=== PATIENT | female | born 1970 | race Caucasian/White ===

== ENCOUNTER 2020-11-07 20:37 | Emergency (ER) | payer OTHER, SELFPAY ==
--- NOTE | ~2020-11-07 | XR_ITS ---
EXAMINATION: XR CHEST CLINICAL INFORMATION: Upper respiratory symptoms COMPARISON: None TECHNIQUE: 2 views of the chest were obtained. FINDINGS: The lungs are well expanded. There is no focal consolidation, edema, or effusion. No pneumothorax. The cardiomediastinal silhouette is within normal limits. No acute osseous abnormality. XR/XR chest 2V IMPRESSION: Clear lungs.
[2020-11-07 21:23] VITALS: BP 156/72; PULSE 79; RESP 18; TEMP 37.2; O2SAT 98; BMI 40.7
[2020-11-07 21:50] LABS: COVID-19 Test Positive (Negative)
--- NOTE | 2020-11-07 22:22 | ED_ITS ---
HPI - URI/Sore Throat General Chief Complaint: Upper Respiratory Symptoms Stated Complaint: Covid symptoms Time Seen by Provider: 11/07/20 22:18 Source: patient Mode of arrival: ambulatory Limitations: no limitations History of Present Illness HPI Narrative: Patient not COVID vaccinated complaining of body aches sore throat dry cough burning in the chest for last 3 days patient has partner also sick with the same for last 1 week no fever no significant shortness of breath saturating 98% on room air Related Data Previous Rx's Medication Instructions Recorded codeine 10 mg-guaifenesin 100 mg/5 10 ml PO Q4-6H PRN #237 ml 11/07/20 mL oral liquid dexamethasone 6 mg tablet 6 mg PO DAILY #7 tab 11/07/20 (Decadron) Allergies Allergy/AdvReac Type Severity Reaction Status Date / Time No Known Allergies Allergy Verified 11/07/20 21:23 Review of Systems Review of Systems: Yes all other systems are reviewed and are negative PMFSH Past Medical History Medical History No pertinent past medical history Social History Social History Advance Directives: No Advance Directives Information Provided: No Patient : No Physical Exam Vital Signs: Vital Signs: Last Vital Signs Temp 99.0 F 11/07/20 21:23 Pulse 79 11/07/20 21:23 Resp 18 11/07/20 21:23 BP 156/72 H 11/07/20 21:23 Pulse Ox 98 11/07/20 21:23 Body Mass Index 40.7 Appearance: Alert. Oriented X3. No acute distress. ENT: Pharynx normal. Oral Mucosa moist Neck: Normal inspection. Neck supple. CVS: Normal heart rate and rhythm. Pulses normal. Respiratory: No respiratory distress. Equal air entry bilateral, no wheezing /rales/rhonchi Abdomen: Soft and nontender. Skin: Skin warm and dry. r. Extremities: No lower extremity edema. No calf tenderness Neuro: Oriented X 3. MDM - URI/Sore Throat MDM Narrative Medical decision making narrative: Patient a dry cough chest x-ray negative saturating 98% on room air COVID positive which are patient on Decadron Lab Data Attestation: I reviewed the patient's lab results. Labs: Lab Results 11/07/20 Range/Units 21:34 COVID-19 ([facility]) Positive A (Negative) COVID-19 Clin Com See Note Discharge Plan Discharge Clinical Impression: COVID-19 Patient Disposition: Home, Self-Care Instructions: COVID-19 (Coronavirus Disease 2019) (ED) Additional Instructions: Keep isolated for 2 weeks Decadron as advised Cough syrup as advised Report to the ER if increased shortness of breath Prescriptions: New dexamethasone [Decadron] 6 mg tablet 6 mg PO DAILY Qty: 7 RF: 0 codeine-guaifenesin 10-100 mg/5 mL liquid 10 ml PO Q4-6H PRN (Reason: cough) Qty: 237 RF: 0 Stand Alone Forms: Work/School Release Interventions: ED Discharge Assessment Last Done: 11/07/20 22:34 Discharge Date/Time: 11/07/20 22:35
== END 2020-11-07 22:35 | disposition home or self-care (01) ==
PROVIDERS: Emergency Provider Internal Medicine
DX: U07.1 COVID-19 (principal); R05 Cough; Z79.899 Other long term (current) drug therapy
CPT/HCPCS: 36415; 71046; 87635; 99283

== ENCOUNTER 2020-11-15 09:14 | Emergency (ER) | payer OTHER, SELFPAY ==
--- NOTE | ~2020-11-15 | XR_ITS ---
EXAMINATION: XR CHEST CLINICAL INFORMATION: Cough, Covid. COMPARISON: 11/07/2020 chest radiographs. TECHNIQUE: Frontal view of the chest was obtained. FINDINGS: Patchy opacities are seen most pronounced in the left mid and lower lung garcia. The heart and mediastinal structures are unremarkable. XR/XR chest 1V IMPRESSION: Patchy infiltrates predominantly in the left mid and lower lung garcia were not seen previously and suggest an infectious/inflammatory process. COVID can demonstrate this appearance.
[2020-11-15 09:36] LABS: COVID-19 Test Positive (Negative)
[2020-11-15 10:45] VITALS: BP 129/57; PULSE 72; RESP 18; TEMP 36.6; O2SAT 97; BMI 40.7
--- NOTE | 2020-11-15 11:06 | ED.URI ---
HPI - URI/Sore Throat General Chief Complaint: Upper Respiratory Symptoms Stated Complaint: fly like symptons + covid Time Seen by Provider: 11/15/20 10:44 Source: patient Mode of arrival: ambulatory Limitations: no limitations History of Present Illness HPI Narrative: 50 y/o unvaccinated female with recent diagnosis of COVID-19 on 11/07 (symptomatic for the last 10 days) who presents to the ER today with ongoing symptoms. She reports she wants to make sure she does not have pneumonia. She has a hard time taking a deep breath and has frequent coughing fits. She is not bringing up phlegm. She is no longer having fevers. She has very mild SOB with exertion and feels fatigued when she talks and moves around a lot. She has no chest pains. No N/V/D and she is tolerating PO. MD elicited complaint: fever and cough Pertinent past history: other (COVID-19) Onset (ago): day(s) (10) Consistency: constant Severity: moderate Able to tolerate fluids by mouth: Yes Exacerbating factors: other (night time, coughing fits) Relieving factors: OTC cold medicine Context: sick contacts Associated symptoms: myalgias, headache, cough and shortness of breath Treatments prior to arrival: cold medicine Related Data Previous Rx's Medication Instructions Recorded codeine 10 mg-guaifenesin 100 mg/5 10 ml PO Q4-6H PRN #237 ml 11/07/20 mL oral liquid dexamethasone 6 mg tablet 6 mg PO DAILY #7 tab 11/07/20 (Decadron) azithromycin 250 mg tablet See Rx Instructions .ROUTE 11/15/20 (Zithromax Z-Abdifatah) .COMPLEX #6 tab benzonatate 100 mg capsule 100 mg PO TID PRN #10 cap 11/15/20 (Tessalon Perles) prednisone 50 mg tablet 50 mg PO DAILY #5 tab 11/15/20 Allergies Allergy/AdvReac Type Severity Reaction Status Date / Time No Known Allergies Allergy Verified 11/07/20 21:23 Review of Systems Review of Systems: Constitutional: No Fever, No Chills ENT/Mouth: + sore throat, No Rhinorrhea, No Swallowing Difficulty Cardiovascular: No Chest Pain, + SOB, No Orthopnea, No Edema Respiratory: + Cough, No Sputum, No Wheezing, No dyspnea Gastrointestinal: No Nausea, No Vomiting, No Diarrhea, No abdominal Pain Genitourinary: No Dysuria, No Urinary Frequency, No Hematuria Musculoskeletal: No joint pain, + Myalgias Skin: No Skin Lesions, No rash Neuro: + Weakness, No Numbness, No Dizziness, + Headache Psych: + Anxiety/Panic, No Depression Heme/Lymph: No Bruising, No Lymphadenopathy PMFSH Past Medical History Medical History No pertinent past medical history Social History Social History Advance Directives: Yes Advance Directives Information Provided: Yes Advance Directives on File: No Patient : No Physical Exam Vital Signs: Vital Signs: Last Vital Signs Temp 97.9 F 11/15/20 10:45 Pulse 72 11/15/20 10:45 Resp 18 11/15/20 10:45 BP 129/57 L 11/15/20 10:45 Pulse Ox 97 11/15/20 10:45 Body Mass Index 40.7 Appearance: Alert. Oriented X3. No acute distress. Eyes: Normal inspection ENT: Pharynx normal. Neck: Normal inspection. Neck supple. CVS: Normal heart rate and rhythm. Pulses normal. Respiratory: No respiratory distress. Breath sounds coarse throughout but no wheezing or rhonchi. dry cough Abdomen: Soft and nontender. +BS x4 Skin: Skin warm and dry. Normal skin color. Normal skin turgor. No rashes. Extremities: No lower extremity edema. No calf tenderness, swelling or skin changes Neuro: Oriented X 3. No motor deficit. No sensory deficit. Course Course Course Narrative: 50 y/o female presenting with known COVID-19 and ongoing cough and fatigue. Mild SOB without chest pain. Doubt PE. No hypoxia or tachycardia. She is in no distress. CXR shows left sided infiltrates consistent with COVID PNA. Will give steroids, z-abdifatah, antitussive for supportive care. Encouarged to get a pulse oximeter at home to monitor her saturations. She is stable for d/c home with plan for close follow up. She will call her doctor this week. MDM - URI/Sore Throat Lab Data Labs: Lab Results 11/15/20 Range/Units 09:21 COVID-19 ([facility]) Positive A (Negative) COVID-19 Clin Com See Note Critical Care Time Critical Care Time Critical Care Time: No Discharge Plan Discharge Clinical Impression: Pneumonia due to 2019 novel coronavirus Patient Disposition: Home, Self-Care Instructions: Covid-19 Viral Syndrome and Novel Coronavirus (ED) Hey/Ath Additional Instructions: Your x-ray showed signs of COVID pneumonia. Your oxygen levels were normal. Treatment for this is supportive care Take the prescribed medications to help with inflammation in your lungs Follow up with your doctor this week Rest. Drink plenty of fluids. Do not go out in public while you are not feeling well Take over the counter cold/flu medications as needed for your symptoms. Take Tylenol and/or Motrin as needed for fevers and body aches. Recommend getting a pulse oximeter for home to measure your oxygen levels. If your oxygen level is 90% or less, come back to the ER. If you shortness of breath worsens , if you develop difficulty breathing or any other concerning symptom come back to the ER for further evaluation. Prescriptions: New prednisone 50 mg tablet 50 mg PO DAILY Qty: 5 RF: 0 azithromycin [Zithromax Z-Abdifatah] 250 mg tablet See Rx Instructions .ROUTE .COMPLEX Qty: 6 RF: 0 benzonatate [Tessalon Perles] 100 mg capsule 100 mg PO TID PRN (Reason: cough) Qty: 10 RF: 0 No Action dexamethasone [Decadron] 6 mg tablet 6 mg PO DAILY Qty: 7 RF: 0 codeine-guaifenesin 10-100 mg/5 mL liquid 10 ml PO Q4-6H PRN (Reason: cough) Qty: 237 RF: 0
== END 2020-11-15 11:30 | disposition home or self-care (01) ==
PROVIDERS: Emergency Provider Internal Medicine
DX: U07.1 COVID-19 (principal); J12.82 Pneumonia due to coronavirus disease 2019; M79.10 Myalgia, unspecified site; R05.9 Cough, unspecified; R51.9 Headache, unspecified; R06.02 Shortness of breath; Z79.899 Other long term (current) drug therapy
CPT/HCPCS: 36415; 71045; 87635; 99283

== ENCOUNTER 2020-11-19 12:05 | Outpatient (REF) | payer OTHER, SELFPAY ==
[2020-11-19 12:51] LABS: COVID-19 Test Negative (Negative)
== END 2020-11-19 12:06 | disposition home or self-care (01) ==
LOC: HO.LAB 12:05
PROVIDERS: PCP Internal Medicine; Visit Provider Internal Medicine
DX: Z20.822 Contact with and (suspected) exposure to COVID-19 (principal)
CPT/HCPCS: 36415; 87635; C9803

== ENCOUNTER 2020-11-20 18:14 | Emergency (ER) | payer OTHER, SELFPAY ==
[2020-11-20 20:09] VITALS: BP 109/69; PULSE 60; RESP 18; TEMP 36.6; O2SAT 99; BMI 40.7
== END 2020-11-20 20:26 | disposition left against medical advice (07) ==
PROVIDERS: Emergency Provider Emergency Medicine
DX: R53.83 Other fatigue (principal)
CPT/HCPCS: 99281; 99282

== ENCOUNTER 2021-02-16 08:16 | Outpatient (REF) | payer OTHER, SELFPAY ==
[2021-02-16 11:17] LABS: Binax Internal Control QC Valid; Binax Lot number: 9864; Binax Now Covid-19 Ag Negative (Negative)
== END 2021-02-16 08:17 | disposition home or self-care (01) ==
LOC: HO.LAB 08:16
PROVIDERS: Visit Provider Internal Medicine
DX: Z20.822 Contact with and (suspected) exposure to COVID-19 (principal)
CPT/HCPCS: 36415; C9803